=== PATIENT | female | born 1980 | race Two or more races ===

== ENCOUNTER 2017-09-11 08:45 | Day surgery (SDC) | payer SELFPAY ==
[2017-09-11] VITALS (7 sets, daily range): BP systolic 100–117; BP diastolic 60–76
[~2017-09-11] VITALS: Ht 152.4 cm; Wt 53.1 kg
[2017-09-11] MEDS ORDERED: VITAMIN B COMP1 EAC2 ORAL (09:31)
[2017-09-11] MEDS ORDERED: ZANTAC150 MG ORAL (09:31)
--- NOTE | 2017-09-11 09:43 | Short Stay Surgery H&P ---
History of Present Illness History of Present Illness Chief Complaint Dysphagia, severe heartburn/GERDs. HPI Archana Ruiz is a 36 year old female who was admitted on for Abdominal Pain, Gerd and dysphagia Patient History Allergies: Coded Allergies: No Known Allergies (Unverified , 09/11/17) Medication History Scheduled Ranitidine Hcl* (Zantac*), 150 MG ORAL DAILY, (Reported) Vitamin B Complex (Vitamin B Complex), 1 CAP ORAL DAILY, (Reported) Review of Systems Cardiovascular: Reports: no symptoms Respiratory: Reports: no symptoms Skeletal: Reports: no symptoms Gastrointestinal: Reports: gastro esophageal reflux disease Genitourinary: Reports: no symptoms Neurologic: Reports: no symptoms Endocrine: Reports: no symptoms Hematologic: Reports: no symptoms Physical Exam Vital Signs Last Vital Signs Date Time Temp Pulse Resp B/P (MAP) Pulse Ox O2 Delivery O2 Flow Rate FiO2 09/11/17 09:37 98.3 58 18 117/76 100 Room Air 98.3 Skin: normal HENT: normal Heart: normal Lungs: normal Abdomen: abnormal Extremities: normal Genitourinary: normal Plan Plan of Care Upper GI endoscopy and biopsy. Preop Interventions None. Summary of Findings see the reports Attestation Are the patient's medical conditions optimized for surgery? Attestation Response: yes Zachary Carroll MD Sep 11, 2017 09:43
--- NOTE | 2017-09-11 09:44 | Pre-Procedure Note/Attestation ---
Pre-Procedure Note/Attestation Complete Prior to Procedure Planned Procedure: left Procedure Narrative: Examination of the upper GI tract with biopsy Indications for Procedure Pre-Operative Diagnosis: R/O Esophagitis/Peptic ulcer Attestation I attest that I discussed the nature of the procedure; its benefits; risks and complications; and alternatives (and the risks and benefits of such alternatives ), prior to the procedure, with the patient (or the patient's legal community engagement representative). I attest that, if there was a reasonable possibility of needing a blood transfusion, the patient (or the patient's legal community engagement representative) was given the [facility] standardized written summary, pursuant to the [place] Blood Safety Act ([place] Health and Safety Code # 1645, as amended). I attest that I re-evaluated the patient just prior to the surgery and that there has been no change in the patient's H&P, except as documented below: Zachary Carroll MD Sep 11, 2017 09:44
--- NOTE | 2017-09-11 09:46 | Discharge Instructions ---
Discharge Instructions Discharge Instructions Follow up with: Seethe docotor in office next week with calling before hand. For Congestive Heart Failure Reminder Report to your physician any weight gain of 5 pounds or more in one week. Zachary Carroll MD Sep 11, 2017 09:46
[2017-09-11] MEDS ORDERED: Lidocaine 1% MPF 10mg/ml 5ml ONE (09:48)
[2017-09-11] MEDS ORDERED: Propofol 200mg/20ml IV ONE (09:48)
--- NOTE | 2017-09-11 10:14 | Endoscopy Procedure Note ---
Endoscopy Procedure Note General Indication for Procedure: Acid reflux, GERDs and dysphagia Procedures Performed: EGD - Evidence of moderate amount of bile in stomach sugestive of bile reflux otherwise completely normal Upper GI endoscopy. Biopsy was done per random from gastric body. Specimen: yes Pt Tolerated Procedure Well: Yes Estimated Blood Loss: none Anesthesia Anesthesiologist: Dr. Rodriguez Anesthesia: moderate sedation Medications Medication Given: see anesthesia record Inserted Devices Implant(s) used?: No Quality Quality of Bowel Preparation: Excellent GI Core Measures 50 yrs or older w/o bx or poly: Not Applicable 10yrs. F/U not recommended: Not Applicable If not recommended, why?: Med reason:<3 yrs.: System Reason:<3 yrs.: Zachary Carroll MD Sep 11, 2017 10:14
[2017-09-11] MEDS ORDERED: LR 1000ml 1,000 ML IVLG SCH (10:19)
[2017-09-11] MEDS ORDERED: DiphenhydrAMINE 50mg/ml Inj IVP PRN (10:30)
[2017-09-11] MEDS ORDERED: fentaNYL 100 mcg/2 mL IV PRN (10:30)
--- NOTE | 2017-09-11 10:39 | Anethesia Preoperative Eval ---
Anesthesia Pre-op PMH/ROS General Date of Evaluation: Sep 11, 2017 Time of Evaluation: 09:45 Anesthesiologist: ASA Score: ASA 2 Mallampati Score Class I : Soft palate, uvula, fauces, pillars visible Class II: Soft palate, uvula, fauces visible Class III: Soft palate, base of uvula visible Class IV: Only hard plate visible Mallampati Classification: Class II Surgeon: wild Diagnosis: gerd Surgical Procedure: egd Anesthesia History: none Family History: no anesthesia problems Allergies: Coded Allergies: No Known Allergies (Unverified , 09/11/17) Medications: see eMAR Past Medical History Cardiovascular: Denies: HTN, CAD, IA, valve dz, arrhythmia, other Pulmonary: Denies: asthma, COPD, AMBROCIO, other Gastrointestinal/Genitourinary: Reports: GERD Neurologic/Psychiatric: Denies: dementia, CVA, depression/anxiety, TIA, other Endocrine: Denies: DM, hypothyroidism, steroids, other HEENT: Denies: cataract (L), cataract (R), glaucoma, [place] (L), [place] (R), other Hematology/Immune: Denies: anemia, DVT, bleeding disorder, other Musculoskeletal/Integumentary: Denies: OA, RA, DJD, DDD, edema, other Anesthesia Pre-op Phys. Exam Physician Exam Last Vital Signs Date Time Temp Pulse Resp B/P (MAP) Pulse Ox O2 Delivery O2 Flow Rate FiO2 09/11/17 09:37 98.3 58 18 117/76 100 Room Air 98.3 Constitutional: NAD Cardiovascular: RRR Respiratory: CTA Airway Exam Mallampati Score: Class II MO: full ROM: full Teeth: intact Dentures: no upper, no lower Anesthesia Pre-op A/P Labs Urine Test Test 09/11/17 09:40 Urine HCG, Qualitative Negative (NEGATIVE) Risk Assessment & Plan Assessment: asa 2 Plan: mac Pre-Antibiotics Drug: none Hallie Rodriguez M.D. Sep 11, 2017 10:39
--- NOTE | 2017-09-11 10:42 | Immediate Post-Op Evaluation ---
Immediate Post-Op Evalulation Immediate Post-Op Evalulation Procedure: egd Date of Evaluation: Sep 11, 2017 Time of Evaluation: 10:26 IV Fluids: 20ml Blood Products: 0 Estimated Blood Loss: 0 Urinary Output: 0 Blood Pressure Systolic: 104 Blood Pressure Diastolic: 64 Pulse Rate: 52 Respiratory Rate: 14 O2 Sat by Pulse Oximetry: 100 Temperature (Fahrenheit): 97.2 Pain Score (1-10): 0 Nausea: No Vomiting: No Complications none Patient Status: awake, patent, none Hydration Status: adequate Drug: none Hallie Rodriguez M.D. Sep 11, 2017 10:41
--- NOTE | 2017-09-11 11:21 | 48 Hour Post Anesthesia Eval ---
Post Anesthesia Evaluation Procedure: egd Date of Evaluation: Sep 11, 2017 Time of Evaluation: 11:00 Blood Pressure Systolic: 100 0: 60 Pulse Rate: 56 Respiratory Rate: 16 Temperature (Fahrenheit): 97.2 O2 Sat by Pulse Oximetry: 100 Airway: patent Nausea: No Vomiting: No Pain Intensity: 0 Hydration Status: adequate Mental Status/LOC: patient returned to baseline Post-Anesthesia Complications: none Follow-up care needed: ready to discharge Hallie Rodriguez M.D. Sep 11, 2017 11:21
--- NOTE | 2017-09-11 18:45 | Operative Note - Dictated ---
DATE OF OPERATION: 09/11/2017 SURGEON: Zachary Carroll M.D. PROCEDURE: Esophagogastroduodenoscopy with biopsy. PREOPERATIVE DIAGNOSIS: Dysphagia, gastroesophageal reflux symptoms, and epigastric pain. POSTOPERATIVE DIAGNOSIS: Evidence of moderate bile in the stomach suggestive of bile esophageal reflux, otherwise complete normal upper GI endoscopy. Biopsy was taken per random from gastric body. MEDICATION USED: Per Dr. Rodriguez, anesthesiologist. INSTRUMENT: GIF Olympus upper GI video endoscope. DESCRIPTION OF PROCEDURE: The patient after arriving in endoscopy unit, was told about risks and benefits of the procedure, which she accepted and signed the informed consent. She was then put on left lateral decubitus position. After adequate IV sedation, the scope was gently passed through the cricopharyngeal area, was lodged in the upper esophagus and gradually advanced towards gastroesophageal junction. The entire length of the esophagus was normal. There was no any evidence of a stricture, inflammatory process, ulceration, exudate, etc. The scope was gradually advanced towards gastroesophageal junction whereby the GE junction was noted to be completely within normal limits. No evidence of Gutierrez's or hiatal hernia noted. At this point, the scope was advanced into the stomach. Gastric cavity was distended. Immediately was seen that there was moderate amount of green bile collected in the body and the fundus of the stomach, which was suctioned. Underlying mucosa looked completely normal. Gradually, the areas of the fundus, the body, and the antrum were examined and there was no any evidence of inflammatory process, ulceration, tumor, polyps, hemangioma, etc. At this point, one random biopsy from gastric body was obtained in the midbody of the stomach over the greater curvature area. Subsequently, the scope was passed through the pylorus. First and second portion of duodenum were also found to be completely normal. At this time, the scope was pulled back into the stomach, a retroflexion maneuver was applied, and the area of the gastroesophageal junction was examined in a closer fashion, which revealed complete normal findings. Finally, the scope was pulled out and the procedure was terminated. The patient tolerated the procedure well and left the endoscopy room in good condition. Zachary Carroll M.D. DR: RADHA JOB#: [id number] CC:
== END 2017-09-11 12:00 | disposition home or self-care (01) ==
LOC: GAS 08:45
DX: R13.10 Dysphagia, unspecified (principal); K21.9 Gastro-esophageal reflux disease without esophagitis
CPT/HCPCS: 81025